=== PATIENT | male | born 1995 | race African-American/Black ===

== ENCOUNTER 2024-01-06 02:11 | Emergency (ER) | payer OTHER, MEDICAID, SELFPAY ==
[2024-01-06] VITALS (10 sets, daily range): BP systolic 100–148; BP diastolic 75–80; PULSE 60–88; RESP 12–20; TEMP 36.6–36.7; O2SAT 93–100
--- NOTE | ~2024-01-06 | CT_ITS ---
EXAMINATION: CT abdomen pelvis w con DATE: 01/06/2024 03:29 INDICATION: Abdominal pain. Hyperbilirubinemia. TECHNIQUE: Computed tomography (CT) of the abdomen and pelvis was performed with 100 mL Omnipaque 350 intravenous contrast. Automated exposure control and iterative reconstruction technique were employe d. The dose-length product was 210.47 mGy-cm. COMPARISON: None. FINDINGS: The visualized portions of the lung bases are clear without pneumonia or pleural effusion. The heart size is normal. No pericardial effusion. The liver, gallbladder, spleen, pancreas, adrenal glands, and kidneys are normal. There are no dilated loops of bowel. There are changes of appendectom y. There are no pathologically enlarged lymph nodes. There is no free intraperitoneal fluid. There is levocurvature of thoracolumbar spine. IMPRESSION: 1. No etiology for the patient's symptoms. Reviewed, dictated and finalized at location A. [facility]
[2024-01-06 02:33] LABS: Basophils Percent Auto 0.3 % (0.2-1.2); Eosinophils Absolute Auto 0.1 K/mm3 (0-0.3); Eosinophils Percent Auto 1.2 % (0-4.4); Hematocrit 46.5 % (42.0-52.0); Hemoglobin 15.7 g/dL (14.0-18.0); Immature Granulocyte Absolute 0.03 K/mm3 (0.00-0.031); Immature Granulocyte Percent A 0.3 % (0-0.5); Lymphocytes Absolute Auto 0.42 K/mm3 (0.9-3.2); Lymphocytes Percent Auto 4.5 % (18.3-44.2); Mean Corpuscular HGB Conc 33.8 g/dl (32-36); Mean Corpuscular Volume 82.9 fl (80-100); Mean Platelet Volume 11.8 fl (7.4-10.4); Monocytes Absolute Auto 0.6 K/mm3 (0.1-0.6); Monocytes Percent Auto 6.3 % (2.6-8.5); Neutrophils Absolute Auto 8.2 K/mm3 (1.3-6.7); Neutrophils Percent Auto 87.4 % (45.5-73.1); Platelet Count Result 169 k/mm3 (150-375); Red Blood Count 5.61 M/mm3 (4.6-6.20); Red Cell Distribution Width 12.9 % (11.5-14.5); White Blood Count 9.4 K/mm3 (4.5-10.0)
[2024-01-06 02:45] LABS: Alanine Aminotransferase 22 U/L (6-50); Albumin Level 4.7 g/dL (3.5-5.1); Alkaline Phosphatase 74 U/L (38-126); Anion Gap 7 mmol/L (8-16); Aspartate Amino Transferase 41 U/L (17-59); Bilirubin,Total 3.8 mg/dL (0.2-1.3); Blood Urea Nitrogen 13 mg/dL (9-20); Calcium 9.8 mg/dL (8.4-10.2); Carbon Dioxide 27 mmol/L (22-30); Chloride 104 mmol/L (98-107); Estimated CRCL calculation 87 ml/min; Estimated Glomerular Filt Rate > 60; Glucose 93 mg/dL (65-110); Lipase 79 U/L (23-300); Potassium 3.4 mmol/L (3.4-5.0); Sodium 138 mmol/L (137-145)
[2024-01-06] MEDS: SODIUM CHLORIDE 0.9% IV 1,000 ML 999 ML IV CONT ×2 (02:52→03:30)
[2024-01-06] MEDS: MORPHINE SULFATE (*CRX) 4 MG/ML INJ IV PUSH (02:52)
[2024-01-06] MEDS: ONDANSETRON INJ 4 MG/2 ML VIAL IV PUSH (02:52)
[2024-01-06 02:55] LABS: Appearance Urine Clear (Clear); Bilirubin Urine Negative (Negative); Blood Urine Negative (Negative); Color Urine Yellow (Yellow); Glucose Urine UA Negative (Negative); Ketones Urine 1+ mg/dL (Negative); Leukocyte Esterase Ur Negative LEU/UL (Negative); Nitrate Urine Negative (Negative); Protein Urine Negative (Negative); Specific Grav Ur 1.023 (1.001-1.035); pH Urine 7.5 (5.0-9.0)
[2024-01-06 02:58] LABS: Add Urine Microscopic? NO
--- NOTE | 2024-01-06 03:09 | ED.GENADULT ---
HPI - General Adult General Chief complaint: Nausea/Vomiting/Diarrhea Stated complaint: vomiting, lethargic since around 3pm Time Seen by Provider: 01/06/24 02:33 History of Present Illness HPI narrative: The patient is a 28-year-old gentleman who presents emergency department with chief complaint of abdominal pain and nausea and vomiting. Patient reports around 3 this afternoon he started having pain in the periumbilical and epigastric region. The patient reports the pain is sharp reports not improved by anything patient reports he has had multiple episodes of vomiting and reports that the pain is not improved by anything. Patient reports he has had a prior appendectomy. Related Data Allergies Allergy/AdvReac Type Severity Reaction Status Date / Time No Known Allergies Allergy Verified 01/06/24 02:15 Review of Systems Review of Systems: A 10 system review of systems was completed on the patient and is negative except for what is stated in the HPI. Nursing and ancillary documentation was reviewed. Exam Narrative: GENERAL: Well-appearing, well-nourished, and in no acute distress. HEAD: Normocephalic, atraumatic. EYES: PERRLA and EOMI. ENT: Nares clear, no rhinorrhea or epistaxis. Mucous membranes moist. NECK: Supple. CHEST: Clear to auscultation. No respiratory distress. HEART: Regular rate and rhythm. No murmur heard. Normal peripheral pulses. ABDOMEN: Soft, tenderness to palpation in the epigastric region, nondistended, normal active bowel sounds. EXTREMITIES: Normal range of motion. No edema. SKIN: Warm, dry, no rash. NEURO: No focal deficits. Alert and oriented x3. PSYCH: Normal mood and affect. Course Vital Signs Vital signs: Vital Signs Temperature 36.6 C 01/06/24 02:21 Pulse Rate 62 01/06/24 02:21 Respiratory Rate 19 01/06/24 02:21 Blood Pressure 141/80 H 01/06/24 02:21 Pulse Oximetry 100 01/06/24 02:21 Temperature 36.6 C 01/06/24 02:21 Pulse Rate 88 01/06/24 05:15 Respiratory Rate 16 01/06/24 05:15 Blood Pressure 147/78 H 01/06/24 05:01 Pulse Oximetry 100 01/06/24 03:30 Medical Decision Making [facility] Narrative Medical decision making narrative: Differential diagnosis includes gastritis, colitis, gastroenteritis, cholecystitis, cholelithiasis, pancreatitis Laboratory studies were obtained on the patient showed a normal CBC CMP was within normal limits with the exception of an elevated bilirubin. Lipase was normal the rest of liver enzymes are normal urinalysis showed 1+ ketones CT scan of the abdomen pelvis showed no acute abnormality The patient received 2 L normal saline boluses and received IV antiemetics. The patient is feeling much better at this point and would like to trial outpatient therapy. Vital Signs Vital Signs: Vital Signs Temperature 36.6 C 01/06/24 02:21 Pulse Rate 62 01/06/24 02:21 Respiratory Rate 19 01/06/24 02:21 Blood Pressure 141/80 H 01/06/24 02:21 Pulse Oximetry 100 01/06/24 02:21 Temperature 36.6 C 01/06/24 02:21 Pulse Rate 88 01/06/24 05:15 Respiratory Rate 16 01/06/24 05:15 Blood Pressure 147/78 H 01/06/24 05:01 Pulse Oximetry 100 01/06/24 03:30 Lab Data 01/06/24 02:28 01/06/24 02:28 Labs: Lab Results 01/06/24 01/06/24 Range/Units 02:28 02:49 WBC 9.4 (4.5-10.0) K/mm3 RBC 5.61 (4.6-6.20) M/mm3 Hgb 15.7 (14.0-18.0) g/dL Hct 46.5 (42.0-52.0) % MCV 82.9 (80-100) fl MCH 28.0 (26-34) pg MCHC 33.8 (32-36) g/dl RDW 12.9 (11.5-14.5) % Plt Count 169 (150-375) k/mm3 MPV 11.8 H (7.4-10.4) fl Immature Gran % (Auto) 0.3 (0-0.5) % Neut % (Auto) 87.4 H (45.5-73.1) % Lymph % (Auto) 4.5 L (18.3-44.2) % [place] % (Auto) 6.3 (2.6-8.5) % Eos % (Auto) 1.2 (0-4.4) % Baso % (Auto) 0.3 (0.2-1.2) % Lymph # (Auto) 0.42 L (0.9-3.2) K/mm3 [place] # (Auto) 0.6 (0.1-0.6) K/mm3 Eos # (Auto) 0.1
[2024-01-06] MEDS: PROCHLORPERAZINE EDISYLATE 10 MG/2 ML VIAL IV PUSH (04:19)
== END 2024-01-06 05:35 | disposition home or self-care (01) ==
PROVIDERS: Emergency Provider Emergency Medicine
DX: K52.9 Noninfective gastroenteritis and colitis, unspecified (principal)
CPT/HCPCS: 36415; 74177; 80053; 81003; 83690; 85025; 96361; 96374; 96375; 99284; J0780; J2270; J2405; J7030; Q9967